=== PATIENT | male | born 1955 | race Caucasian/White ===

== ENCOUNTER → 2016-06-24 | Outpatient (CLI) | payer OTHER ==
--- NOTE | 2016-06-24 14:04 | DI ---
Indication: ITS.REASON: M25.562 PAIN IN LEFT KNEE PROCEDURE: MRI KNEE LEFT W/O CONTRAST: Encounter: Initial Comparison: None Technique: Multiplanar multisequence MR imaging of the left knee was performed without contrast. Findings: The lateral meniscus is normal. Tear of the posterior horn medial meniscus appears to have both vertical and horizontal components. The ACL and PCL are normal. The MCL and lateral collateral ligament complex are intact. The extensor mechanism is normal. No acute fracture. The cartilage of the lateral compartment shows deep partial thickness loss in the anterior aspect of the femoral condyle with osteophyte formation. Medial compartment cartilage also shows areas of deep partial-thickness loss in the central femoral condyle. Patellofemoral compartment has large areas of full-thickness loss in the lateral facet and median ridge with subchondral edema. Small joint effusion and Perdue's cyst. Muscular signal intensity is normal. Impression: 1. Posterior horn medial meniscal tear. 2. Mild tricompartmental osteoarthritis. .
== END ==
LOC: IMA 12:30
PROVIDERS: ATTEND Family Medicine Sports Medicine
DX: S83.242A Other tear of medial meniscus, current injury, left knee, initial encounter (principal); M17.12 Unilateral primary osteoarthritis, left knee; M25.462 Effusion, left knee; M71.22 Synovial cyst of popliteal space [Baker], left knee; M25.562 Pain in left knee